=== PATIENT | male | born 1990 | race Caucasian/White ===

== ENCOUNTER 2016-08-12 10:08 | Emergency (ER) | payer BC ==
--- NOTE | 2016-08-12 10:46 | UC ---
Throat Pain/Nasal Ivan HPI - HPI Summary HPI Summary: complaint of pain in his throat and glands last night headache, sore muscles, chills and fever felt nauseated last felt like he was going to have diarrhea, dizzy spell for less than 30 seconds nasal congestion intermittently since 06/25/16 pressure in ears and face often felt feverish and chills last night hasn't needed rescue inhaler for 3 weeks has been intermittently ill since thanksgving- URI, pharyngitis not getting enough sleep d/t school and work - History of Current Complaint Chief Complaint: UCRespiratory Stated Complaint: FEVER,CHILLS,SWOLLEN GLANDS Time Seen by Provider: 08/12/16 10:31 - Allergies/Home Medications Allergies/Adverse Reactions: Allergies Allergy/AdvReac Type Severity Reaction Status Date / Time No Known Allergies Allergy Verified 08/12/16 10:28 Home Medications: Home Medications Mometasone 220 MCG MDI * [Asmanex 220 MCG MDI *] 1 puff INH DAILY 08/12/16 [ History Confirmed 08/12/16] PMH/Surg Hx/FS Hx/Imm Hx Previously Healthy: No - URI Endocrine History Of: Denies: Diabetes, Thyroid Disease, Hyperthyroidism, Hypothyroidism, Dyslipidemia Cardiovascular History Of: Denies: Cardiac Disorders, Hypertension, Pacemaker/ICD, Myocardial Infarction , Congestive Heart Failure, Atrial Fibrillation, Deep Vein Thrombosis, Bleeding Disorders Respiratory History Of: Reports: Asthma Denies: COPD, Bronchitis, Pneumonia, Pulmonary Embolism GI/ History Of: Denies: Gastroesophageal Reflux, Ulcer, Gastrointestinal Bleed, Gall Bladder Disease, Kidney Stones, Diverticulitis, Renal Disease, Urosepsis Neurological History Of: Denies: TIA, CVA, Dementia, Seizures, Migraine Psychological History Of: Denies: Anxiety, Depression, Bipolar Disorder, Schizophrenia, Post Traumatic Stress Disorder Cancer History Of: Denies: Lung Cancer, Colorectal Cancer, Breast Cancer, Prostate Cancer, Cervical Cancer Other History Of: Negative For: HIV, Hepatitis B, Hepatitis C - Surgical History Surgical History: None - Family History Known Family History: Positive: Respiratory Disease Negative: Seizure Disorder, Blood Disorder - Social History Occupation: Student Alcohol Use: Occasionally Substance Use Type: Marijuana Substance Use Comment - Amount & Last Used: occasional Smoking Status (MU): Never Smoked Tobacco - Immunization History Most Recent Influenza Vaccination: no Review of Systems Constitutional: Chills, Fatigue Skin: Negative Eyes: Negative ENT: Sore Throat, Ear Ache, Nasal Discharge Respiratory: Negative Cardiovascular: Negative Gastrointestinal: Negative Genitourinary: Negative Motor: Negative Neurovascular: Negative Musculoskeletal: Negative Neurological: Negative Psychological: Negative All Other Systems Reviewed And Are Negative: Yes Physical Exam Triage Information Reviewed: Yes Appearance: No Pain Distress, Well-Nourished Vital Signs: Initial Vital Signs Temp 99.2 F 08/12/16 10:30 Pulse 100 08/12/16 10:30 Resp 18 08/12/16 10:30 BP 123/66 08/12/16 10:30 Pulse Ox 100 08/12/16 10:30 Vital Signs Reviewed: Yes Eyes: Positive: Conjunctiva Clear ENT: Positive: Pharyngeal erythema, Nasal congestion, Nasal drainage, TMs normal , Other: - maxillary sinus tenderness Neck: Positive: No Lymphadenopathy Respiratory: Positive: Lungs clear, Normal breath sounds, No respiratory distress Cardiovascular: Positive: RRR, No Murmur, Pulses Normal Abdomen Description: Positive: Nontender, No Organomegaly, Soft Bowel Sounds: Positive: Present Musculoskeletal: Positive: No Edema Psychological Exam: Normal Skin Exam: Normal Throat Pain/Nasal Course/Dx - Differential Dx/Diagnosis Differential Diagnosis/HQI/PQRI: Pharyngitis, Sinusitis, Tonsillitis, URI Provider Diagnoses: sinusitis Discharge - Discharge Plan Condition: Stable Disposition: HOME Patient Education Materials: Sinusitis (ED), Gastroenteritis (ED) Forms: *Work Release Referrals: Non Staff,Doctor [Primary Care Provider] - [facility] [place] [facility] [Outside] Additional Instructions: Please take antibiotic as directed. Increase fluids and rest Take acetaminophen for fever or pain Please review your discharge instructions. If your symptoms do not improve please call your primary care provider or return to urgent care
[2016-08-12 10:57] VITALS: BP 123/66
== END 2016-08-12 11:01 | disposition home or self-care (01) ==
LOC: UCCORT 10:08
DX: J32.9 Chronic sinusitis, unspecified (principal)
CPT/HCPCS: 99212; G0463

== ENCOUNTER 2017-01-07 15:43 | Emergency (ER) | payer BC ==
[2017-01-07 16:18] VITALS: BP 126/70
--- NOTE | 2017-01-07 16:24 | UC ---
Throat Pain/Nasal Ivan HPI - HPI Summary HPI Summary: 26 yo male with sore throat and fever x 1-2 days no n/v/d some myalgias - History of Current Complaint Chief Complaint: UCGeneralIllness Stated Complaint: SORE THROAT, FEVER Time Seen by Provider: 01/07/17 16:12 Hx Obtained From: Patient Onset/Duration: Gradual Onset, Lasting Days Severity: Mild Pain Intensity: 4 Pain Scale Used: 0-10 Numeric Cough: None Associated Signs & Symptoms: Positive: Fever - Allergies/Home Medications Allergies/Adverse Reactions: Allergies Allergy/AdvReac Type Severity Reaction Status Date / Time No Known Allergies Allergy Verified 01/07/17 16:13 Home Medications: Home Medications Ckzzwrazstpkq-Hw-[id number] W/ APAP [Vicks Dayquil Severe Cold 2-48-356-325 mg] 1 tab PO Q6H PRN 01/07/17 [History Confirmed 01/07/17] PMH/Surg Hx/FS Hx/Imm Hx Previously Healthy: Yes Respiratory History: Asthma Other History Of: Negative For: HIV, Hepatitis B, Hepatitis C - Surgical History Surgical History: Yes Surgery Procedure, Year, and Place: right wrist surgery 2012 - Family History Known Family History: Positive: Cardiac Disease, Hypertension, Diabetes, Respiratory Disease Negative: Seizure Disorder, Blood Disorder - Social History Alcohol Use: Occasionally Substance Use Type: None Substance Use Comment - Amount & Last Used: occasional Smoking Status (MU): Never Smoked Tobacco - Immunization History Most Recent Influenza Vaccination: no Review of Systems Constitutional: Fever, Chills Skin: Negative Eyes: Negative ENT: Sore Throat Respiratory: Negative Cardiovascular: Negative Gastrointestinal: Negative Genitourinary: Negative Motor: Negative Neurovascular: Negative Musculoskeletal: Myalgia Neurological: Negative Psychological: Negative All Other Systems Reviewed And Are Negative: Yes Physical Exam Triage Information Reviewed: Yes Appearance: Well-Appearing, No Pain Distress, Well-Nourished Vital Signs: Initial Vital Signs Temp 102.6 F 01/07/17 16:13 Pulse 106 01/07/17 16:13 Resp 16 01/07/17 16:13 BP 126/70 01/07/17 16:13 Pulse Ox 97 01/07/17 16:13 Vital Signs Reviewed: Yes Eyes: Positive: Conjunctiva Clear ENT: Positive: Hearing grossly normal, Pharyngeal erythema, TMs normal, Tonsillar swelling, Tonsillar exudate. Negative: Nasal congestion, Nasal drainage, Trismus, Muffled/hoarse voice Neck: Positive: Supple, Nontender, Enlarged Nodes @ - ant cervical Respiratory: Positive: Lungs clear, Normal breath sounds, No respiratory distress, No accessory muscle use Cardiovascular: Positive: RRR, No Murmur Musculoskeletal: Positive: ROM Intact, No Edema Neurological: Positive: Alert Psychological Exam: Normal Skin Exam: Normal Throat Pain/Nasal Course/Dx - Course Course Of Treatment: RS (-). declines antipyretic - Differential Dx/Diagnosis Provider Diagnoses: acute exudative tonsillitis Discharge - Discharge Plan Condition: Stable Disposition: HOME Prescriptions: Amoxicillin (*) [Amoxicillin 875 MG (*)] 875 mg PO BID #20 tab Patient Education Materials: Tonsillitis (ED) Forms: *Work Release Referrals: Non Staff,Doctor [Primary Care Provider] - Additional Instructions: rest tylenol or advil for pain/fever recheck in 3-4 days if not better
== END 2017-01-07 16:37 | disposition home or self-care (01) ==
LOC: UCCORT 15:43
DX: J03.90 Acute tonsillitis, unspecified (principal); J45.909 Unspecified asthma, uncomplicated
CPT/HCPCS: 87651; 99212; G0463

== ENCOUNTER 2019-05-13 20:56 | Emergency (ER) | payer BC ==
--- OUTSIDE RECORDS SUMMARY | 2019-05-13 21:07 | XMS REPORT | Continuity of Care Document ---
:1990 External Reference #:[id number] Author Name DANITZA Hill Address [address] [place] [address] Care Team Providers Name Role Phone Anna Cohen MD Care Team Information State Epidemiologist [phone] Problems Active Problems Provider Date Allergic rhinitis due to animals DANITZA Glez Onset: 04/07/2016 Mild persistent asthma SREE Glez-Juanjose Onset: 04/07/2016 Moderate persistent asthma SREE Glez-Juanjose Onset: 04/07/2016 Allergic rhinitis DANITZA Glez Onset: 04/07/2016 Body mass index (BMI) 24.0-24.9, adult Davon Martines M.D. Onset: 02/25/2016 Asthma without status asthmaticus Davon Martines M.D. Onset: 02/25/2016 Allergic rhinitis due to pollen Davon Martines M.D. Onset: 02/25/2016 Immunization Davon Martines M.D. Onset: 02/25/2016 Social History Type Date Description Comments Sex Unknown ETOH Use Occasionally consumes alcohol Tobacco Use Start: Unknown Patient has never smoked Recreational Drug Use Denies Drug Use Allergies, Adverse Reactions, Alerts Description No Known Drug Allergies Medications Active Medications SIG Qnty Indications Ordering Provider Date Breo Ellipta 1 puff inhaled 60units Z23 Laury Gilbert, 10/21/2017 once daily SILK SPREADER-C 200-25mcg/Inh Aerosol Proair HFA inahle 2 puffs 8.500gm J30.89 Juan F Vásquez 08/19/2017 108(90Base) every 4 hours as Lia Jolly mcg/Act Aerosol needed Zyrtec Allergy 1 every day Unknown 10mg Tablets Medications Administered in Office Medication SIG Qnty Indications Ordering Provider Date Injection Allergy Injection 01/01/2017 Injection Injection Allergy Injection 11/18/2016 Injection Injection Allergy Injection 11/11/2016 Injection Injection Allergy Injection 10/30/2016 Injection Injection Allergy Injection 10/21/2016 Injection Injection Allergy Injection 10/16/2016 Injection Injection Allergy Injection 10/14/2016 Injection Injection Allergy Injection 10/02/2016 Injection Injection Allergy Injection 09/23/2016 Injection Injection Allergy Injection 09/11/2016 Injection Injection Allergy Injection 09/09/2016 Injection Injection Allergy Injection 09/04/2016 Injection Injection Allergy Injection 09/02/2016 Injection Injection Allergy Injection 08/28/2016 Injection Injection Allergy Injection 08/26/2016 Injection Injection Allergy Injection 08/20/2016 Injection Injection Allergy Injection 07/31/2016 Injection Injection Allergy Injection 07/01/2016 Injection Injection Allergy Injection 06/24/2016 Injection Injection Allergy Injection 06/12/2016 Injection Injection Allergy Injection 06/05/2016 Injection Injection Allergy Injection 05/27/2016 Injection Injection Allergy Injection 05/22/2016 Injection Injection Allergy Injection 05/15/2016 Injection Injection Allergy Injection 04/22/2016 Injection Injection Allergy Injection 04/15/2016 Injection Immunizations Description No Information Available Vital Signs Date Vital Result Comment 03/30/2019 1:20pm Height 72 inches 6'0" Weight 178.00 lb Weight 80.741 kg Respiratory Rate 16 /min Heart Rate 61 /min O2 % BldC Oximetry 98 % BP Systolic 121 mmHg BP Diastolic 68 mmHg Asthma Control Test 24 Fractional Exhaled Nitric Oxide 80 BMI (Body Mass Index) 24.1 kg/m2 07/13/2018 11:41am Height 72 inches 6'0" Weight 178.00 lb Weight 80.741 kg Respiratory Rate 16 /min Heart Rate 54 /min O2 % BldC Oximetry 99 % BP Systolic 128 mmHg BP Diastolic 81 mmHg Asthma Control Test 24 Fractional Exhaled Nitric Oxide 35 BMI (Body Mass Index) 24.1 kg/m2 Results Description No Information Available Procedures Description No Information Available Medical Devices Description No Information Available Encounters Description No Information Available Assessments Date Code Description Provider 03/30/2019 Z23 Encounter for immunization DANITZA Hill 03/30/2019 J30.1 Allergic rhinitis due to pollen DANITZA Hill 03/30/2019 J30.2 Other seasonal allergic rhinitis DANITZA Hill 03/30/2019 J30.81 Allergic rhinitis due to animal (cat) (dog) DANITZA Hill hair and dander 03/30/2019 J30.89 Other allergic rhinitis DANITZA Hill 03/30/2019 J45.30 Mild persistent asthma, uncomplicated SREE Hill Plan of Treatment Future Appointment(s):04/12/2019 1:40 pm - [facility]ITZA [facility] at [facility]03/30/2019 - DARIANA Hill23 Encounter for kjgwmzzqjhfbX67.1 Allergic rhinitis due to uhbmuuH83.2 Other seasonal allergic aeakduqoU01.81 Allergic rhinitis due to animal (cat) (dog) hair and nhbftaW42.89 Other allergic lnxuauoeP12.30 Mild persistent asthma, uncomplicatedFollow up:2 weeks with CYRUS onlyRecommendations:Continue all medications as prescribed.Refrain from wearing perfumes/scented colognes while visitingour office Start the Breo 1 puff daily Continue the Proair 2 puffs every 4 hours as needed for cough, shortness of breath, chest congestion, or wheezing. If using >2x week call the office. PFT done today. Pulmonary Function Studies are done by exhaling ( blowing) into a machine to detect an asthmatic condition or other lung problem. Results reviewed and shows NORMAL SPIROMETRY Start the shots in 2 weeks when he is able to come in. Functional Status Description No Information Available Mental Status Description No Information Available Referrals Description No Information Available
--- OUTSIDE RECORDS SUMMARY | 2019-05-13 21:07 | XMS REPORT | Continuity of Care Document ---
:1990 External Reference #:[id number] Author Name Naomi Ritchie NP Address [address] [place] [id number] Care Team Providers Name Role Phone Rickie Starr MD - Orthopaedic Care Team Information [employer] [phone] Surgery Davon Martines MD Care Team Information [employer] [phone] Problems Active Problems Provider Date Uncomplicated moderate persistent asthma Anna Cohen MD Onset: 2018 Social History Type Date Description Comments Sex Unknown ETOH Use Occasionally consumes alcohol Tobacco Use Start: Unknown Patient has never smoked Recreational Drug Use Current Drug User marijuana monthly Smoking Status Reviewed: 08/30/18 Patient has never smoked Allergies, Adverse Reactions, Alerts Description No Known Drug Allergies Medications Active Medications SIG Qnty Indications Ordering Provider Date Breo Ellipta 1 puff daily J45.40 Davon Martines MD 100-25mcg/Inh Aerosol Immunizations CPT Code Status Date Vaccine Lot # [id number] Given 08/30/2018 Pneumococcal 23 Immunization Adult Or [id number] Immunosuppressed Patient 980[address] Given 08/30/2018 Gardasil-9 (HPV) Nonavalent 2-3 Dose Schedule Im [id number] 24054 Given 08/26/2017 Gardasil-9 (HPV) Nonavalent 2-3 Dose Schedule Im [id number] 98145 Given 06/08/2017 Tdap (Adacel) Ages 7 And Above Only [id number] 89494 Given 06/08/2017 Gardasil-9 (HPV) Nonavalent 2-3 Dose Schedule Im [id number] 77670 Refused 08/30/2018 Influenza Vac, Quadrivalent, Split, 0.5mL Dosage, Im Use Vital Signs Date Vital Result Comment 05/12/2019 2:46pm Weight 174.00 lb Heart Rate 70 /min BP Systolic 124 mmHg BP Diastolic 78 mmHg Respiratory Rate 16 /min Height 72 inches 6'0" BMI (Body Mass Index) 23.6 kg/m2 08/30/2018 2:51pm Weight 172.00 lb Heart Rate 72 /min BP Systolic 124 mmHg BP Diastolic 80 mmHg Respiratory Rate 16 /min Height 72 inches 6'0" BMI (Body Mass Index) 23.3 kg/m2 Results Test Date Facility Test Result H/L Range Note Laboratory test 05/12/2019 [facility] GC/Chlamydia/Tr <pending> finding ich Ampl Dna-RL Laboratory test 05/12/2019 [facility] Hepatitis C NON REACTIVE Non Reactive 1 finding Virus Antibody S/[facility]atio([facility] HIV 1/2 Screen @ <pending> HIV Combo By [facility] 05/12/2019 [facility] HIV NON REACTIVE Non Reactive Combo Laboratory test 05/12/2019 [facility] Hepatitis Be <pending> 2 finding AB-RL Treponema Igg/Igm NEGATIVE (Neg) 3 1 S/CO Ratio >/=1.0 is REACTIVE. S/CO <5.0 is Low Reactive. S/CO >/= 5.0 is High Reactive. Effective Mar 20, 2017 all anti-HCV reactive samples are sent for quantitative PCR confirmation. 2 HIV COMBO TO BE PERFORMED AT [facility]. RESULTS TO FOLLOW 3 Unless otherwise specified, testing performed by [facility] [address] [place] [id number] Procedures Description No Information Available Medical Devices Description No Information Available Encounters Description No Information Available Assessments Date Code Description Provider 05/12/2019 Z11.3 Encounter for screening for infections with a Naomi Ritchie NP predominantly sexual mode of transmission 05/12/2019 Z11.3 Encntr screen for infections w sexl mode of [facility] Laboratory transmiss 05/12/2019 Z11.3 Encntr screen for infections w sexl mode of [facility] transmiss Plan of Treatment Future Appointment(s):08/15/2019 8:15 am - Naomi Ritchie NP at [facility]05/12/2019 - Naomi Ritchie NPZ11.3 Encounter for screening for infections with a predominantly sexual mode of transmissionComments:Asymptomatic would like STI testingRecommend repeat testing in 3 months. Agreeable to thisAdvise abstaining from sexual contact until results are received and treatment completed, if indicated. Use barrier method if unable to abstain.Follow up:Labs today with F/ U in 3 months for repeat testing Functional Status Description No Information Available Mental Status Description No Information Available Referrals Description No Information Available
[2019-05-13 21:16] VITALS: BP 138/75
--- NOTE | 2019-05-13 21:31 | UC ---
General HPI - HPI Summary HPI Summary: Mr. Decker remains asymptomatic but his sexual partner was diagnosed with a likely chlamydial conjunctivitis. He was tested yesterday but is concerned that the U/A was not accurate. - History of Current Complaint Chief Complaint: CHANDRIKADSjose d Stated Complaint: PERSONAL Time Seen by Provider: 05/13/19 21:15 Pain Intensity: 0 - Allergy/Home Medications Allergies/Adverse Reactions: Allergies Allergy/AdvReac Type Severity Reaction Status Date / Time No Known Allergies Allergy Verified 05/13/19 21:16 Home Medications: Home Medications NK [No Home Medications Reported] 05/13/19 [History Confirmed 05/13/19] PMH/Surg Hx/FS Hx/Imm Hx Previously Healthy: Yes Other History Of: Negative For: HIV, Hepatitis B, Hepatitis C - Surgical History Surgical History: Yes Surgery Procedure, Year, and Place: cyst on left rodriguez 2019. right wrist surgery 2012 - Family History Known Family History: Positive: Cardiac Disease, Hypertension, Diabetes, Respiratory Disease Negative: Seizure Disorder, Blood Disorder - Social History Alcohol Use: Weekly Substance Use Type: None Substance Use Comment - Amount & Last Used: occasional Smoking Status (MU): Never Smoked Tobacco - Immunization History Most Recent Influenza Vaccination: no Review of Systems All Other Systems Reviewed And Are Negative: Yes Physical Exam - Summary Physical Exam Summary: Non-toxic in appearance with stable vitals. Triage Information Reviewed: Yes Appearance: Well-Appearing Vital Signs: Initial Vital Signs Temp 99.3 F 05/13/19 21:11 Pulse 55 05/13/19 21:11 Resp 16 05/13/19 21:11 BP 138/75 05/13/19 21:11 Pulse Ox 99 05/13/19 21:11 Vital Signs Reviewed: Yes Eyes: Positive: Conjunctiva Clear ENT Exam: Normal Respiratory Exam: Normal Cardiovascular Exam: Normal Abdominal Exam: Normal Course/Dx - Course Course Of Treatment: A u/a was sent for GC and Chlamydia. - Diagnoses Provider Diagnosis: Encounter for medical screening examination Discharge ED - Sign-Out/Discharge Documenting (check all that apply): Patient Departure All imaging exams completed and their final reports reviewed: No Studies - Discharge Plan Condition: Critical Disposition: HOME Referrals: Anna Cohen MD [Primary Care Provider] - Additional Instructions: Follow up with your PCP for further evaluation. - Billing Disposition and Condition Condition: CRITICAL Disposition: Home
[2019-05-16 13:39] LABS: Chlamydia trachomatis NAA Negative (Negative); Neisseria gonorrhoeae (GC) NAA Negative (Negative)
== END 2019-05-13 21:36 | disposition home or self-care (01) ==
LOC: UCCORT 20:56
DX: Z13.89 Encounter for screening for other disorder (principal)
CPT/HCPCS: 87491; 87591; 99211; G0463